=== PATIENT | female | born 1965 ===

== ENCOUNTER 2017-12-11 08:12 | Day surgery (SDC) | payer MEDICAID ==
[2017-12-11 09:11] VITALS: BMI 35.9
[2017-12-11] MEDS ORDERED: Lactated Ringer's 1,000 ML IV ONE (09:13)
[2017-12-11] MEDS ORDERED: Propofol 10 mg/ml Inj (20 ML) ONE (10:15)
[2017-12-11] MEDS ORDERED: Midazolam 2 MG/2 ML VIAL ONE (10:18)
[2017-12-11 11:00] VITALS: TEMP 97; O2SAT 100
[2017-12-11 11:01] VITALS: BP 100/70; PULSE 79; RESP 16
== END 2017-12-11 13:13 | disposition home or self-care (01) ==
LOC: H.ENDO 08:12
PROVIDERS: ATTEND Internal Medicine Gastroenterology
DX: Z12.11 Encounter for screening for malignant neoplasm of colon (principal); G47.33 Obstructive sleep apnea (adult) (pediatric); J45.909 Unspecified asthma, uncomplicated; K21.9 Gastro-esophageal reflux disease without esophagitis; K64.8 Other hemorrhoids; K57.30 Diverticulosis of large intestine without perforation or abscess without bleeding
CPT/HCPCS: 45378; J2250; J2704; J7120